=== PATIENT | female | born 1995 | race Caucasian/White ===

== ENCOUNTER 2021-02-14 20:55 | Emergency (ER) | payer OTHER ==
[~2021-02-14] VITALS: Ht 149.9 cm; Wt 56.7 kg
[2021-02-14] MEDS ORDERED: MEDROLPACK PO (22:31)
[2021-02-14] MEDS ORDERED: KETO10TA2 PO (22:31)
== END 2021-02-14 22:35 | disposition home or self-care (01) ==
LOC: ER 20:55
DX: G51.0 Bell's palsy (principal); Z20.822 Contact with and (suspected) exposure to COVID-19